=== PATIENT | female | born 1980 | race Caucasian/White ===

== ENCOUNTER 2022-01-12 12:33 | Outpatient (REF) | payer OTHER, SELFPAY ==
--- NOTE | ~2022-01-12 | MM_ITS ---
EXAMINATION: MM SCREENING DIGITAL BREAST TOMOSYNTHESIS, BILATERAL CLINICAL INFORMATION: Screening. Asymptomatic. Age 41. No prior breast imaging. No known family history breast cancer. The lifetime risk of breast cancer based on the Tyrer-Cuzick Model is 12%. COMPARISON: None (current study represents initial baseline exam). TECHNIQUE: Digital breast tomosynthesis is performed in both the craniocaudal and mediolateral oblique views along with computer-aided detection (CAD). Synthesized 2D images are generated from the tomosynthesis. FINDINGS: There are scattered areas of fibroglandular density (ACR BI-RADS breast composition Category b). There are no significant masses, abnormal calcifications, or other abnormalities. The axilla and skin contours are unremarkable. MM/MM tomosynthesis screening BI IMPRESSION: No mammographic evidence of malignancy. ASSESSMENT: BI-RADS 1: Negative RECOMMENDATION: Routine annual mammography screening. This patient's information was entered into a reminder system with a target due date for their next mammogram.
== END 2022-01-12 12:34 | disposition home or self-care (01) ==
LOC: HO.MAMMO 12:33
PROVIDERS: Visit Provider Student in an Organized Health Care Education/Training Program
DX: Z12.31 Encounter for screening mammogram for malignant neoplasm of breast (principal)
CPT/HCPCS: 77063; 77067

== ENCOUNTER 2023-06-03 12:14 | Outpatient (REF) | payer OTHER, SELFPAY | END 2023-06-03 12:15 | disposition home or self-care (01) | LOC: HO.MAMMO 12:14 | PROVIDERS: PCP Pediatrics; Visit Provider Pediatrics | DX: Z12.31 Encounter for screening mammogram for malignant neoplasm of breast (principal) | CPT/HCPCS: 77063; 77067 ==

== ENCOUNTER → 2023-06-03 12:30 | Outpatient (BNV) | payer OTHER, SELFPAY | PROVIDERS: PCP Pediatrics; Visit Provider Radiology Diagnostic Radiology | DX: Z12.31 Encounter for screening mammogram for malignant neoplasm of breast (principal) | CPT/HCPCS: 77063; 77067 ==

== ENCOUNTER 2024-06-08 12:10 | Outpatient (REF) | payer OTHER, SELFPAY ==
--- NOTE | ~2024-06-08 | MM_ITS ---
EXAMINATION: MM SCREENING DIGITAL BREAST TOMOSYNTHESIS, BILATERAL CLINICAL INFORMATION: Screening. Asymptomatic. COMPARISON: Mammography: Comparison is made with available priors TECHNIQUE: Digital breast mammography with tomosynthesis is performed in both the craniocaudal and mediolateral oblique views along with computer-aided detection (CAD). FINDINGS: There are scattered areas of fibroglandular density (ACR BI-RADS breast composition Category b). There are no significant masses, abnormal calcifications, or other abnormalities. MM/MM tomosynthesis screening BI IMPRESSION: No mammographic evidence of malignancy. ASSESSMENT: BI-RADS BI-RADS 1 - Negative RECOMMENDATION: Routine annual mammography screening. 1 year F/U This examination should not preclude the clinical evaluation of a suspicious palpable abnormality. This patient's information was entered into a reminder system with a target due date for their next mammogram. Electronically signed by: Alicia David DO 06/16/2024 03:20 PM MARA
== END 2024-06-08 12:11 | disposition home or self-care (01) ==
LOC: HO.MAMMO 12:10
PROVIDERS: Visit Provider Pediatrics
DX: Z12.31 Encounter for screening mammogram for malignant neoplasm of breast (principal)
CPT/HCPCS: 77063; 77067

== ENCOUNTER → 2024-06-08 12:30 | Outpatient (BNV) | payer OTHER, SELFPAY | PROVIDERS: Visit Provider Internal Medicine | DX: Z12.31 Encounter for screening mammogram for malignant neoplasm of breast (principal) | CPT/HCPCS: 77063; 77067 ==

== ENCOUNTER 2025-06-21 10:01 | Outpatient (REF) | payer OTHER, SELFPAY ==
--- NOTE | ~2025-06-21 | MM_ITS ---
EXAMINATION: MM SCREENING DIGITAL BREAST TOMOSYNTHESIS, BILATERAL CLINICAL INFORMATION: Screening. Asymptomatic. COMPARISON: Mammography: Comparison is made with available priors TECHNIQUE: Digital breast mammography with tomosynthesis is performed in both the craniocaudal and mediolateral oblique views along with computer-aided detection (CAD). FINDINGS: There are scattered areas of fibroglandular density. There are no significant masses, abnormal calcifications, or other abnormalities. MM/MM tomosynthesis screening BI IMPRESSION: No mammographic evidence of malignancy. ASSESSMENT: BI-RADS Category 1: Negative RECOMMENDATION: Routine annual mammography screening. 1 year F/U This examination should not preclude the clinical evaluation of a suspicious palpable abnormality. This patient's information was entered into a reminder system with a target due date for their next mammogram. Electronically signed by: Alicia David DO 06/21/2025 03:49 PM MARA
--- OUTSIDE RECORDS SUMMARY | 2025-06-21 12:11 | XMS_ITS | Continuity of Care Document ---
Author Organization [place] - [facility] Located within [facility] Address [address] [address] Care Team Providers Care Production Bow Maker Name Role Phone ZOE PITT Primary Care Provider Assessment Encounter Date Assessment Date Assessment LastModified by Organization Details LastModified Time 05/06/2025 05/06/2025 CL & CK aid working fine. Told to contact office to schedule f/u appt with audiology after the [email or web address] Not available 05/06/2025 16:30:50 Plan of Treatment Reminders Order Date Submit Date Provider Last Modified By Organization Details Last Modified Time Details Appointments Establish ed 10 2025 09:30A M SRIDEVI HERNANDEZ MD Not available Not available Not available Lab None recorded. Referral None recorded. Procedures None recorded. Surgeries None recorded. Imaging None recorded. Medication Orders None recorded. Patient TargetsNo targets recorded. Patient InstructionsNo instructions recorded. Reason for Referral None Reported. Problems Name Problem SNOMED Code Status Onset Date Resolution Date Notes Provider Name and Address Organization Details Recorded Time Acute serous otitis media of right ear [id number] 78981 Completed 201602/21/2024 Acute serous otitis media, right ear; Note: Date Diagnose d: 7 12:48 PM (H65.01) Not Available [facility] 4 02:56:36 Pain of right temporom andibula r joint 42192792257 348720 Active 2016 Arthralg ia of right temporom andibula r joint; Note: Date Diagnose d: 7 12:46 PM (M26.621 ) Not Available [facility] 4 02:56:35 Conducti ve hearing loss 63751623 Active 2016 Conducti ve hearing loss, unilater al, left ear, with unrestri cted hearing on the contrala teral side; Note: Changed from H90.0 to H90.12 (03/11/20 23 11:57 AM) , Date Diagnose d: 7 9:13 AM (H90.0) Not Available [facility] 4 02:56:38 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 [id number] 73541 Completed 201602/21/2024 Choleste atoma of attic, right ear; Note: Date Diagnose d: 7 8:59 AM (H71.01) Not Available [facility] 4 02:56:37 Mixed conducti ve and sensorin eural hearing loss, bilatera l 189691515 Active 2019 Mixed conducti ve and sensorin eural hearing loss, bilatera l; Note: Date Diagnose d: 0 11:11 AM (H90.6) Not Available [facility] 4 02:56:37 Otorrhea of left ear 94532971768 45654 Completed 202012/03/2023 Otorrhea , left ear; Note: Date Diagnose d: 1 1:48 PM (H92.12) Note: Date Diagnose d: 1 1:48 PM (H92.12) SRIDEVI HERNANDEZ MD [address] [place] [address], [facility] [place], [address] , [facility] - [facility] 4 20:20:07 Partial loss of ear ossicles 55421351 Active 2020 Partial loss of ear ossicles , right ear; Note: Date Diagnose d: 7 10:24 AM (H74.321 ) ; Start Date : 12/13/19 17 Parti al loss of ear ossicles , left ear; Note: Date Diagnose d: 1 9:19 AM (H74.322 ) Partia l loss of ear ossicles , bilatera l; Note: Date Diagnose d: 09/20/2020 2:54 PM (H74.323 ) ; Start Date : 09/21/19 21 Not Available [facility] 4 02:56:36 Marginal perforat ion of tympanic membrane 95776337 Active 2022 Other marginal perforat ions of tympanic membrane , left ear; Note: Date Diagnose d: 3 11:57 AM (H72.2X2 ) Other marginal perforat ions of tympanic membrane , left ear; Note: Date Diagnose d: 7 12:38 PM (H72.2X2 ) ; Start Date : 08/06/19 17 Not Available [facility] 4 02:56:37 Conducti ve hearing loss 52328453 Active 2023 SRIDEVI HERNANDEZ MD [address] [facility] [address], [place], [address] , [place] - [facility] 4 20:21:57 Marginal perforat ion of tympanic membrane 26534813 Active 2023 SRIDEVI HERNANDEZ MD [address] [facility] [address], [place], [address] , [place] [facility] 4 20:22:04 Disorder of left Eustachi an tube 02512711870 89752 Active 2023 SRIDEVI HERNANDEZ MD [address] [facility],[place] [address], [place], [address] , [place] [facility] 4 20:22:21 Left conducti ve hearing loss 37494574688 07 Active 2023 KRISTIN VALLE, PHIL [address] [facility],[place] [address], [place], [address] , [place] [facility] 4 16:04:07 Acute myringit is of left ear 45396437958 23130 Active 2024 SRIDEVI HERNANDEZ MD [address] [facility],[place] [address], [place], [address] , [place] [facility] 10:30:26 Conducti ve hearing loss of left ear with normal hearing on right side 9130846772 Active 2024 KRISTIN VALLE, [facility] [address] [address], [place], [address] , [facility] 16:28:22 Problem Notes None recorded. Procedures Surgical History Date Name Laterality Status Provider Name and Address Organization Details Recorded Time tonsillectomy and adenoidectomy completed Zuleyka Godinez [facility] 03/02/2024 09:18:19 extraction of wisdom tooth completed Zuleyka Godinez [facility] 03/02/2024 09:18:30 section completed Zuleyka Godinez [facility] 03/02/2024 09:18:36 Imaging Results None recorded. Procedure Notes None recorded. Medical Equipment None Reported. Allergies No known drug allergies Medications Name Sig Start Date Stop Date Status Note LastModified by Organization Details LastModified Time Claritin 10 mg tablet 1 tablet by mouth 03/29 completed Medicati on ID: [id number] D uration Value: 90 Brand Name: Claritin Send Method: E-Prescr ibed Sub s Allowed: subs OK Medic ationGen ericName : Claritin Not Available Not Available Not Available Ciloxan 0.3 % eye drops 02/06 completed Medicati on ID: [id number] P rescribe d By Name: VARUN Long nd Name: Ciloxan Send Method: E-Prescr ibed Sub s Allowed: subs OK Speci al Instruct ion: Instill 4 drops twice a day into right ear for 14 days Med icationG enericNa me: Ciloxan Not Available Not Available Not Available acetamino phen 500 mg tablet TAKE 2 TABLETS BY MOUTH THREE TIMES DAILY NEEDED FOR PAIN 03/29 completed Not Available Not Available Not Available ofloxacin 0.3 % ear drops 4 drop 03/02 completed Medicati on ID: [id number] D uration Value: 7 Prescri bed By Name: Juni Palomino nd Name: ofloxaci n Send Method: E-Prescr ibed Sub s Allowed: subs OK Speci al Instruct ion: x 7 days Med icationG enericNa me: ofloxaci n Not Available Not Available Not Available levofloxa letty 750 mg tablet 12/21 completed Medicati on ID: [id number] D uration Value: 14 Reason: () Brand Name: levoflox acin Sen d Method: E-Prescr ibed Sub s Allowed: subs OK Medic ationGen ericName : levoflox acin Not Available Not Available Not Available Pitman 5 mg-325 mg tablet 1-2 tablet by mouth 03/02 completed Medicati on ID: [id number] D uration Value: 7 Prescri bed By Name: Juni Palomino nd Name: Devaughn Se nd Method: E-Prescr ibed Sub s Allowed: subs OK Medic ationGen ericName : Pitman Not Available Not Available Not Available cefdinir 300 mg capsule TAKE 1 CAPSULE BY MOUTH EVERY 12 HOURS FOR 7 DAYS TAKE FOR TREATMEN T OF EAR INFECTIO N 03/02 completed Not Available Not Available Not Available amoxicill in 875 mg-potass ium clavulana te 125 mg tablet TAKE 1 TABLET BY MOUTH EVERY 12 HOURS FOR 14 DAYS 03/02 completed Not Available Not Available Not Available tobramyci n 0.3 %-dexamet hasone 0.1 % eye drops,[employer] pension SHAKE LIQUID AND INSTILL 4 DROPS TO LEFT EAR TWICE DAILY FOR 7 DAYS active Not Available Not Available No t Available oxycodone 5 mg tablet TAKE 1 TABLET BY MOUTH EVERY 6 HOURS NEEDED FOR PAIN. MAY FILL IN AN AMOUNT NOT TO EXCEED THE RECOMMEN DED FULL QUANTITY INDICATE D 03/29 completed Not Available Not Available Not Available ciproflox acin 0.3 %-dexamet hasone 0.1 % ear drops,[employer] pension SHAKE LIQUID AND INSTILL 4 DROPS TO LEFT EAR TWICE DAILY FOR 7 DAYS 03/02 completed Not Available Not Available Not Available Vitals None Recorded Social History None recorded. Functional Status None recorded. Mental Status None recorded. Family History Nothing Reported. Medical History No medical history recorded. Gynecological HistoryNo gynecological history recorded. Obstetrics History GPAL:G 0 P 0 0 0 0 Past Encounters Encounter ID Performer Location Encounter Start Date Encounter Closed Date Diagnosis/Indication Diagnosis SNOMED-CT Code Diagnosis ICD10 Code Diagnosis IMO Codes Diagnosis Note [id number] [facility] [place] [address] [facility], [place] [address] [place] [address] 05/06/2025 15:39:05 05/07/2025 11:57:37 Conductive hearing loss of left ear with normal hearing on right side [id number] H90.12 [id number] Health Concerns Section Related Observation LastModified by Organization Detai ls LastModified Time None Recorded Concern Status LastModified by Organization Details LastModified Time None Recorded Payers Encounter Date Sequence Insurance Name Policy Number Policy Grigsby Covered Member ID Grigsby Member ID Guarantor Name 05/06/2025 1 [employer] [id number] Eliana Akbar [id number] Eliana Akbar Notes Date Note Type Note Provider Name and Address Organization Details Recorded Time 05/06/2025 text/html Patient has no hearing aid benefit. Currently wearing Oticon Intent 1 miniRITE R in chroma beige color in the left ear. dispensed 10/17/2023Excellen t fit to real ear. NAL2 target Set to # 3 adaptation for best clarity. CL & CK - aid working fine - annual appt madeCL&CK aid working fine. Annual appt made PHIL ADAM 100 [facility] [address], [address], [facility] - [facility] 05/06/2025 16:31:38 OBGyn Episode No OBEpisode recorded.
--- OUTSIDE RECORDS SUMMARY | 2025-06-21 12:11 | XMS_ITS | Encounter Summary ---
Author Organization [facility] Address [address] [place] [address] Phone Care Team Providers Care Renderer Name Role Phone Pippa Miramontes MD Primary Care Provid er Owen Betancourt MD Unavailable [phone] Encounter Details Date Type Department Care Team ([facility] Contact Info) Description 02/24/2024 Procedure Pass [facility] [address] [place] [address] Social History Tobacco Use Types Packs/Day Years Used Date Smoking Tobacco: Never Passive Smoke Exposure: Never Smokeless Tobacco: Never Alcohol Use Standard Drinks/Week Comments Yes 0 (1 standard drink = 0.6 oz pur e alcohol) on ocassion, socially Education Answer Date Recorded Are you interested in more education? Not on angelia e 11/17/2022 Are you concerned about learning? Not on file 11/17/2022 No 11/17/2022 No 11/17/2022 Digital Access Answer Date Recorded No 12/18/2022 No 12/18/2022 Reliable internet access at home? Not on file 12/18/2022 Device with a working camera? Not on file Comments Unknown Sex and Gender Information Value Date Recorded Sex Assigned at Not on file Legal Sex Female 10:38 AM EST Gender Identity Not on file Sexual Orientation Not on file documented as of this encounter Plan of Treatment Upcoming Encounters Date Type Department Care Team ([facility] Contact Info) Description 02/02/2026 8:20 AM EDT Office Visit [facility] [address] [place] [address] Catherine Valencia MD [address] [place] [phone] [email or web address] documented as of this encounter Visit Diagnoses Not on filedocumented in this encounter Care Teams Renderer Relationship Specialty Start Date End Date Pippa Miramontes MD [address] [address] PCP - General Internal Medicine 12/09/23 Owen Betancourt MD [address] [address] [email or web address] Otolaryngology 12/09/23 documented as of this encounter Additional Source Comments The information contained in this document represents components of the legal health record. It is not the complete legal health record.[facility]
--- OUTSIDE RECORDS SUMMARY | 2025-06-21 12:11 | XMS_ITS | Clinical Summary ---
Author Organization [facility] Address [address] [place] [address] Phone Care Team Providers Care Cosmetic Consultant Name Role Phone Pippa Miramontes MD Primary Care Provid er Owen Betancourt MD Unavailable [phone] Allergies No known active allergies Medications Medication-Free Text Allergy relief antihistamin e- 25 mg tablet- 1 tablet every evening. Active Active Problems Problem Noted Date Diagnosed Date Malignant neoplasm of thyroid gland 01/27/2025 Assessment & Plan (01/27/2025 1:44 PM EDT): S/p left hemithyroidectomy in May for 7 mm papillary CA, classic type, margins negative, no ETE/LVI/BVI, 6 lymph nodes removed, all negative. 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 She is at very low risk for having residual/recurrent dz. TG flagged high but it was wnl given only had hemithyroidectomy/no BERRY. Her TSH had initially been high normal, but has come back down to pre-surgical level so do not think needs LT4 rx to lower TSH further given low risk. Will monitor labs yearly for now. Polycystic ovarian syndrome 01/22/2024 Chronic ear infection 01/22/2024 Spontaneous pneumothorax 01/22/2024 Multinodular goiter 01/22/2024 Assessment & Plan (01/22/2024 9:11 AM EDT): 43 y.o. woman with multinodular goiter, found on exam by furniture refinisher. Ultrasound last fall showed a stable 7 mm left lower pole nodule and a new 0.9 cm TIRADS 5 nodule in the upper left. She is clinically euthyroid. Will check TFTs. Will obtain/review actual thyroid u/s images & plan on repeating ultrasound in the fall as per recommendation of radiology unless I feel it should be done sooner based on ultrasound appearance. Reviewed ddx & evaluation of nodular thyroid disease. Will obtain previous records from [facility] as well. She should call if does not hear from me with results within 1-2 weeks. Family History Medical History Relation Comments High cholesterol Father Hypertension Father Transient ischemic attack Maternal Grandmother Heart murmur Mother Osteoporosis Mother Diabetes mellitus Paternal Grandfather Diabetes mellitus Paternal Grandmother Diabetes mellitus Paternal Uncle Thyroid disease Neg Hx Relation Status Comments Father Maternal Grandmother Mother Paternal Grandfather Paternal Grandmother Paternal Uncle Social History Tobacco Use Types Packs/Day Years Used Date Smoking Tobacco: Never Passive Smoke Exposure: Never Smokeless Tobacco: Never Tobacco Cessation:Counseling Given: No Alcohol Use Standard Drinks/Week Comments Yes 0 [...] on file Sexual Orientation Not on file Last Filed Vital Signs Vital Sign Reading Time Taken Comments Blood Pressure 124/76 01/27/2025 8:06 AM EDT Pulse 90 01/27/2025 8:06 AM EDT Temperature 36.6 C (97.8 F) 01/22/2024 8:24 AM EDT Respiratory Rate - - Oxygen Saturation 99% 01/27/2025 8:06 AM EDT Inhaled Oxygen Concentration - - Weight 125.1 kg (275 lb 12.8 oz) 01/27/2025 8:06 AM EDT Height 167.6 cm (5' 6 ) 01/27/2025 8:06 AM EDT Body Mass Index 44.52 01/27/2025 8:06 AM EDT Plan of Treatment Upcoming Encounters Date Type Department Care Team (Late st Contact Info) Description 02/02/2026 8:20 AM EDT Office Visit [facility] [address] [place] [address] [place] [address] Catherine Valencia MD [address] [place] [phone] [email or web address] Health Maintenance Due Date Last Done Comments DEPRESSION SCREENING 1993 HEPATITIS C SCREENING 1999 HIV ONE-TIME SCREENING (18-65 YEARS) 1999 PNEUMOCOCCAL VACCINES (0-49 years) (1 of 2 - PCV) 2000 PAP SMEAR 2002 SCREENING FOR DIABETES 2016 MAMMOGRAM 2021 Adult Td,Tdap Booster 12/26/2023 12/25/2013 , 04/30/2011, 03/05/1995 INFLUENZA VACCINE (#1) 2025 04/07/2021 COVID-19 VACCINE ( season) 2025 06/01/2021, 10/07/2020, 09/16/2020, Additional history exists HIB VACCINES Completed 01/19/1985 MENINGOCOCCAL VACCINES (ACWY) Aged Out 04/27/1999 No longer eligible based on patient's age to complete this topic SMOKING STATUS SCREENING (Once After 26 Yrs) Completed 01/27/2025 HEPATITIS A VACCINES Aged Out No long er eligible based on patient's age to complete this topic MENINGOCOCCAL VACCINES (B) Aged Out N o longer eligible based on patient's age to complete this topic Medical Devices Not on file Insurance RAY PPO CIGNA PPO CIGNA PPO CIGNA PPO CIGNA PPO CIGNA PPO Member Subscriber Plan / Payer (Ef fective 2021-Present) Name:Raffy Manisha Relation to Subscriber:Spouse Name:MANISHA AKBAR Date of :1979 Address: [address] [place] [id number] Payer ID:[id number] (NA) Type:PPO Address: [facility] [id number] [place] [id number] Care Teams Cosmetic Consultant Relationship Specialty Start Date End Date Pippa Miramontes MD [address] [address] PCP - General Internal Medicine 12/09/23 Owen Betancourt MD [address] [address] [email or web address] Otolaryngology 12/09/23 Additional Source Comments The information contained in this document represents components of the legal health record. It is not the complete legal health record.[facility]
--- OUTSIDE RECORDS SUMMARY | 2025-06-21 12:11 | XMS_ITS | Data Portability ---
Author Organization [place] - [facility], Allergy Address [address] [address] Care Team Providers Care Dock Operator Name Role Phone ZOE PITT Primary Care Provider [phone] Assessment Encounter Date Assessment Date Assessment LastModified by Organization Details LastModified Time 03/02/2024 03/02/2024 The previously noted retraction of the left reconstructed tympanic membrane appears to remain resolved. I was able to appreciate a pinpoint perforation of the anterior inferior quadrant which is difficult to see due to the curvature of the canal. We discussed how this small perforation is therapeutic rather than pathologic in light of the underlying eustachian tube function, so I recommend continued observation. The right reconstructed tympanic membrane and ossicular chain appears stable overall, no signs of recurrent cholesteatoma or progressive retraction. At this point, no further surgery is planned for this year, but would recommend yearly follow-up to monitor for retraction in light of her significant underlying eustachian tube dysfunction. Patient will continue to follow-up with Justina in audiology for hearing aid maintenance. [email or web address] Not available 03/02/2024 09:28:55 04/23/2024 04/23/2024 CL & CK - aid working fine - annual appt made [email or web address] Not available 04/23/2024 16:10:50 10/15/2024 10/15/2024 CL&CK aid working fine. Annual appt made [email or web address] Not available 10/15/2024 16:31:39 03/29/2025 03/29/2025 The previously noted retraction of the left reconstructed tympanic membrane appears to remain resolved. I was unable to appreciate the previously noted pinpoint perforation of the anterior inferior quadrant which is difficult to see due to the curvature of the canal. We discussed how this small perforation is therapeutic rather than pathologic in light of the underlying eustachian tube function, so I recommend continued observation. There is mild superficial myringitis of the left tympanic membrane for which I recommended 7 days of topical TobraDex drops. Prescription sent to the pharmacy. The right reconstructed tympanic membrane and ossicular chain appears stable overall, no signs of recurrent cholesteatoma or progressive retraction. At this point, no further surgery is planned for this ear, but would recommend yearly follow-up to monitor for retraction in light of her significant underlying eustachian tube dysfunction. Patient will continue to follow-up with Justina in audiology for hearing aid maintenance. [email or web address] Not available 03/29/2025 10:33:27 05/06/2025 05/06/2025 CL & CK aid working fine. Told to contact office to schedule f/u appt with audiology after the holidays [email or web address] Not available 05/06/2025 16:30:50 Plan of Treatment Reminders Order Date Submit Date Provider Last Modified By Organization Details Last Modified Time Details Appointments Establish ed 10 2025 09:30A M SRIDEVI HERNANDEZ MD Not available Not available Not available Lab None recorded. Referral None recorded. Procedures None recorded. Surgeries None recorded. Imaging None recorded. Medication Orders tobramyci n 0.3 %-dexamet hasone 0.1 % [id number], [address] [place], [place], [phone], 03/29/2025 10:31:47 Patient TargetsNo targets recorded. Patient InstructionsNo instructions recorded. Reason for Referral None Reported. Results Created Date Observation Date Name Description Value Unit Range Abnormal Flag Note LastModifiedBy Organization Detail LastModifiedTime 03/11/20 24 08/10/2019 imagi ng/di agnos tic resul t No observ ation record ed. [email or web address] Not Available 03:02:00 03/11/20 24 09/20/2020 imagi ng/di agnos tic resul t No observ ation record ed. [email or web address] Not Available 03:02:12 03/11/20 24 02/06/2021 imagi ng/di agnos tic resul t No observ ation record ed. [email or web address] Not Available 03:02:49 03/11/20 24 03/11/2023 imagi ng/di agnos tic resul t No observ ation record ed. [email or web address] Not Available 03:03:03 03/11/20 24 03/11/2023 imagi ng/di agnos tic resul t No observ ation record ed. [email or web address] Not Available 03:03:08 03/11/20 24 03/11/2023 imagi ng/di agnos tic resul t No observ ation record ed. [email or web address] Not Available 03:03:47 03/11/20 24 08/10/2019 audio gram No observ ation record ed. [email or web address] Not Available 03:03:57 03/11/20 24 04/08/2023 audio gram No observ ation record ed. [email or web address] Not Available 03:04:12 03/11/20 24 09/12/2023 audio gram No observ ation record ed. [email or web address] Not Available 03:04:34 03/11/20 24 10/17/2023 audio gram No observ ation record ed. [email or web address] Not Available 03:04:49 03/11/20 24 10/31/2023 audio gram No observ ation record ed. [email or web address] Not Available 03:04:55 Result Notes None recorded. Problems Name Problem SNOMED Code Status Onset Date Resolution Date Notes Provider Name and Address Organization Details Recorded Time Acute serous otitis media of right ear [id number] 04098 Completed 201602/21/2024 Acute serous otitis media, right ear; Note: Date Diagnose d: 7 12:48 PM (H65.01) Not Available [facility] 4 02:56:36 Pain of right temporom andibula r joint 65807309770 025061 Active 2016 Arthralg ia of right temporom andibula r joint; Note: Date Diagnose d: 7 12:46 PM (M26.621 ) Not Available [facility] 4 02:56:35 Conducti ve hearing loss 67025797 Active 2016 Conducti ve hearing loss, unilater al, left ear, with unrestri cted hearing on the contrala teral side; Note: Changed from H90.0 to H90.12 (03/11/20 11:57 AM) , Date Diagnose d: 7 9:13 AM (H90.0) Not Available [facility] 4 02:56:38 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 [id number] 38852 Completed 201602/21/2024 Choleste atoma of attic, right ear; Note: Date Diagnose d: 7 8:59 AM (H71.01) Not Available [facility] 4 02:56:37 Mixed conducti ve and sensorin eural hearing loss, bilatera l 852105790 Active 2019 Mixed conducti ve and sensorin eural hearing loss, bilatera l; Note: Date Diagnose d: 0 11:11 AM (H90.6) Not Available [facility] 4 02:56:37 Otorrhea of left ear 18446329653 67247 Completed 202012/03/2023 Otorrhea , left ear; Note: Date Diagnose d: 1 1:48 PM (H92.12) Note: Date Diagnose d: 1 1:48 PM (H92.12) SRIDEVI HERNANDEZ MD [address] [place] [address], [facility] [place], [address] , [place] [facility] 4 20:20:07 Partial loss of ear ossicles 50445856 Active 2020 Partial loss of ear ossicles [...] Start Date : 09/21/19 21 Not Available [facility] 4 02:56:36 Marginal perforat ion of tympanic membrane 98929869 Active 2022 Other marginal perforat ions of tympanic membrane , left ear; Note: Date Diagnose d: 3 11:57 AM (H72.2X2 ) Other marginal perforat ions of tympanic membrane , left ear; Note: Date Diagnose d: 7 12:38 PM (H72.2X2 ) ; Start Date : 08/06/19 17 Not Available [facility] 4 02:56:37 Conducti ve hearing loss 76704879 Active 2023 SRIDEVI HERNANDEZ MD [address] [place] [address],[place] [address], [place], [address] , [place] - [facility] 4 20:21:57 Marginal perforat ion of tympanic membrane 62196294 Active 2023 SRIDEVI HERNANDEZ MD [address] [place] [address],[place] [address], [place], [address] , [place] - [facility] 4 20:22:04 Disorder of left Eustachi an tube 42991763359 41820 Active 2023 SRIDEVI HERNANDEZ MD [address] [place] [address],[place] [address], [place], [address] , [place] - [facility] 4 20:22:21 Left conducti ve hearing loss 08869295418 07 Active 2023 JUSTINA VALLE, PHIL [address] [facility],[place] [address], [place], [address] , [place] - [facility] 4 16:04:07 Acute myringit is of left ear 45031158771 49332 Active 2024 SRIDEVI HERNANDEZ MD 100 [facility],[place] [address], [facility] [place], [address] , [place] - [facility] 5 10:30:26 Conducti ve hearing loss of left ear with normal hearing on right side 2957921534 Active 2024 PHIL ADAM 100 [facility] 100, [facility] [place], [address] , [place] - [facility] 5 16:28:22 Problem Notes None recorded. Procedures Surgical History Date Name Laterality Status Provider Name and Address Organization Details Recorded Time tonsillectomy and adenoidectomy completed Zuleyka Godinez [facility] 03/02/2024 09:18:19 extraction of wisdom tooth completed Zuleyka Godinez [facility] 03/02/2024 09:18:30 section completed Zuleyka Godienz [facility] 03/02/2024 09:18:36 Imaging Results None recorded. Procedure Notes None recorded. Medical Equipment None Reported. Allergies No known drug allergies Medications Name Sig Start Date Stop Date Status Note LastModified by Organization Details LastModified Time Claritin 10 mg tablet 1 tablet by mouth 03/29 completed Medicati on ID: [id number] D uration Value: 90 Brand Name: Claritin Send Method: E-Prescr ibed Sub s Allowed: subs OK Medic ationGen ericName : Claritin Not Available Not Available Not Available Ciloxan 0.3 % eye drops 02/06 completed Medicati on ID: [id number] P rescribe d By Name: VARUN Long [...] 4 drop 03/02 completed Medicati on ID: [id number] D uration Value: 7 Prescri bed By Name: Juni Palomino nd Name: ofloxaci n Send Method: E-Prescr ibed Sub s Allowed: subs OK Speci al Instruct ion: x 7 days Med icationG enericNa me: ofloxaci n Not Available Not Available Not Available levofloxa letty 750 mg tablet 12/21 completed Medicati on ID: [id number] D uration Value: 14 Reason: () Brand Name: levoflox acin Sen d Method: E-Prescr ibed Sub s Allowed: subs OK Medic ationGen ericName : levoflox acin Not Available Not Available Not Available Newbern 5 mg-325 mg tablet 1-2 tablet by mouth 03/02 completed Medicati on ID: [id number] D uration Value: 7 Prescri bed By Name: Juni Palomino nd Name: Newbern Se nd Method: E-Prescr ibed Sub s Allowed: subs OK Medic ationGen ericName : Newbern Not Available Not Available Not Available [email or web address] [...] ICD10 Code Diagnosis IMO Codes Diagnosis Note [id number] SRIDEVI HERNANDEZ MD [facility] [address] [address] 03/02/2024 09:06:28 03/02/2024 09:33:26 Marginal perforation of tympanic membrane 56625502 H72.2X2 Conductive hearing loss 97296145 H90.12 Disorder o f left Eustachian tube 3053850957 998470 H69.92 Partial lo ss of ear ossicles 62695935 H74.321 H74.322 H74.323 [id number] [facility]IL ADAM [facility] [place] [address] [place] [address] 04/23/2024 15:39:43 04/24/2024 07:23:26 Left conductive hearing loss 4407312343 107 H90.12 [id number] PHIL ADAM [facility] [place] [address] [place] [address] 10/15/2024 15:37:52 10/19/2024 16:23:21 Left conductive hearing loss 9155240269 107 H90.12 [id number] SRIDEVI HERNANDEZ MD [facility] [address] [address] 03/29/2025 09:38:31 03/29/2025 10:34:04 Conductive hearing loss 54013504 H90.12 Disorder o f left Eustachian tube 2740278030 013596 H69.92 Partial lo ss of ear ossicles 25876023 H74.321 H74.322 H74.323 Acute myri ngitis of left ear 0243442698 995064 H73.002 [id number] PHIL ADAM [facility] [place] 100 [facility],[place] [address] [place] [address] 05/06/2025 15:39:05 05/07/2025 11:57:37 Conductive hearing loss of left ear with normal hearing on right side 0910813793 H90.12 [id number] Health Concerns Section Related Observation LastModified by Organization Detai ls LastModified Time None Recorded Concern Status LastModified by Organization Details LastModified Time None Recorded Advance Directives Directive None Recorded Payers Insurance Date Sequence Insurance Name Policy Number Policy Grigsby Covered Member ID Grigsby Member ID Guarantor Name 05/03/2025 1 [employer] [id number] Elianareji Akbar [id number] Eliana Jonnadeem Notes Date Note Type Note Provider Name and Address Organization Details Recorded Time 03/02/2024 text/html Patient 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 Status post left-sided tympanoplasty with concurrent Otomimix reconstruction of the IS joint in October 2020. Also has history of two stage surgery for right sided cholesteatoma back in . At a visit back in January 2021, there was some concerns about progress of retraction of the newly reconstructed left tympanic membrane which resolved spontaneously in the presence of a new re-perforation of the drum noted by tympanometry in February 2023. At that point I recommended continued observation with consideration of amplification to treat the underlying residual conductive hearing loss. Patient currently working with Justina in audiology for her hearing aids. Patient reports her ears have been feeling fine, with no blockage, pain, or discharge. SRIDEVI HERNANDEZ MD 100 [facility],[address], [address], [facility] - [facility] 03/02/2024 09:29:42 04/23/2024 text/html Patient has no hearing aid benefit. Currently wearing Oticon Intent 1 miniRITE R in chroma beige color in the left ear. dispensed 10/17/2023 PHIL ADAM 100 [facility],[address], [address], [facility] - [facility] 04/23/2024 16:11:33 10/15/2024 text/html Patient has no hearing aid benefit. Currently wearing Oticon Intent 1 miniRITE R in chroma beige color in the left ear. dispensed 10/17/2023 Excellent fit to real ear. NAL2 target Set to # 3 adaptation for best clarity. 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 Status post left-sided tympanoplasty with concurrent Otomimix reconstruction of the IS joint in October 2020. Also has history of two stage surgery for right sided cholesteatoma back in . At a visit back in January 2021, there was some concerns about progress of retraction of the newly reconstructed left tympanic membrane which resolved spontaneously in the presence of a new re-perforation of the drum noted by tympanometry in February 2023. At that point I recommended continued observation with consideration of amplification to treat the underlying residual conductive hearing loss. Patient currently working with Justina in audiology for her hearing aids. Patient reports her ears have been feeling fine, with no blockage, pain, or discharge. SRIDEVI HERNANDEZ MD 100 [facility],[address], [address], [facility] - [facility] 03/29/2025 10:33:48 05/06/2025 text/html Patient has no hearing aid benefit. Currently wearing Oticon Intent 1 miniRITE R in chroma beige color in the left ear. dispensed 10/17/2023Excellent fit to real ear. NAL2 target Set to # 3 adaptation for best clarity. CL & CK - aid working fine - annual appt madeCL&CK aid working fine. Annual appt made JUSTINA VALLE, AUD 100 [facility],[address], [address], [facility] 05/06/2025 16:31:38 OBGyn Episode No OBEpisode recorded.
--- OUTSIDE RECORDS SUMMARY | 2025-06-21 12:11 | XMS_ITS | Continuity of Care Document ---
Author Organization [place] - [facility], [facility] Address [address] [place] [address] Care Team Providers Care Patient Service Coordinator Name Role Phone ZOE PITT Primary Care Provider Assessment Encounter Date Assessment Date Assessment LastModified by Organization Details LastModified Time 03/29/2025 03/29/2025 The previously noted retraction of [...] Justina in audiology for hearing aid maintenance. [email or web address] Not available 03/29/2025 10:33:27 Plan of Treatment Reminders Order Date Submit Date Provider Last Modified By Organization Details Last Modified Time Details Appointments Establish ed 10 2025 09:30A M SRIDEVI HERNANDEZ MD Not available Not available Not available Lab None recorded. Referral None recorded. Procedures None recorded. Surgeries None recorded. Imaging None recorded. Medication Orders tobramyci n 0.3 %-dexamet hasone 0.1 % eye drops,soraya pension 2024 025 [id number], [address], [place], [id number], 03/29/2025 10:31:47 Patient TargetsNo targets recorded. Patient InstructionsNo instructions recorded. Reason for Referral None Reported. Problems Name Problem SNOMED Code Status Onset Date Resolution Date Notes Provider Name and Address Organization Details Recorded Time Acute serous otitis media of right ear [id number] Completed 201602/21/2024 Acute serous otitis media, right ear; Note: Date Diagnose d: 7 12:48 PM (H65.01) Not Available [facility] 4 02:56:36 Pain of right temporom andibula r joint [id number] 789667 Active 2016 Arthralg ia of right temporom andibula r joint; Note: Date Diagnose d: 7 12:46 PM (M26.621 ) Not Available [facility] 4 02:56:35 Conducti ve hearing loss 63779401 Active 2016 Conducti ve hearing loss, unilater al, left ear, with unrestri cted hearing on the contrala teral side; Note: Changed from H90.0 to H90.12 (03/11/20 23 11:57 AM) , Date Diagnose d: 7 9:13 AM (H90.0) Not Available [facility] 4 02:56:38 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 [id number] 46928 Completed 201602/21/2024 Choleste atoma of attic, right ear; Note: Date Diagnose d: 7 8:59 AM (H71.01) Not Available [facility] 4 02:56:37 Mixed conducti ve and sensorin eural hearing loss, bilatera l 025609243 Active 2019 Mixed conducti ve and sensorin eural hearing loss, bilatera l; Note: Date Diagnose d: 0 11:11 AM (H90.6) Not Available [facility] 4 02:56:37 Otorrhea of left ear 92852529202 29505 Completed 202012/03/2023 Otorrhea , left ear; Note: Date Diagnose d: 1 1:48 PM (H92.12) Note: Date Diagnose d: 1 1:48 PM (H92.12) SRIDEVI HERNANDEZ MD [address] [facility],[place] [address], [place], [address] , [facility] - [facility] 4 20:20:07 Partial loss of ear ossicles 42278765 Active 2020 Partial loss of ear ossicles [...] Start Date : 09/21/19 21 Not Available [facility] 4 02:56:36 Marginal perforat ion of tympanic membrane 47124612 Active 2022 Other marginal perforat ions of tympanic membrane , left ear; Note: Date Diagnose d: 3 11:57 AM (H72.2X2 ) Other marginal perforat ions of tympanic membrane , left ear; Note: Date Diagnose d: 7 12:38 PM (H72.2X2 ) ; Start Date : 08/06/19 17 Not Available [facility] 4 02:56:37 Conducti ve hearing loss 52150414 Active 2023 SRIDEVI HERNANDEZ MD [address] [facility] [address], [place], [address] , [facility] - [facility] 4 20:21:57 Marginal perforat ion of tympanic membrane 72858146 Active 2023 SRIDEVI HERNANDEZ MD [address] [facility], [place], [place], [address] , [place] - [facility] [place] 4 20:22:04 Disorder of left Eustachi an tube 52079918141 18103 Active 2023 SRIDEVI HERNANDEZ MD [address] [facility], [place], [address] , [place] - [facility] [place] 4 20:22:21 Left conducti ve hearing loss 26646303275 07 Active 2023 PHIL ADAM [address] [facility], [place], [place], [address] , [place] - [facility] 4 16:04:07 Acute myringit is of left ear 25376845555 13064 Active 2024 SRIDEVI HERNANDEZ MD [address] [facility],[place] [address], [place], [place], [address] , [place] - [facility] 5 10:30:26 Conducti ve hearing loss of left ear with normal hearing on right side 3875516528 Active 2024 PHIL ADAM [address] [facility] [address], [place], [address] , [place] - [facility] [place] 5 16:28:22 Problem Notes None recorded. Procedures Surgical History Date Name Laterality Status Provider Name and Address Organization Details Recorded Time tonsillectomy and adenoidectomy completed Zuleyka Godinez [place] [facility] 03/02/2024 09:18:19 extraction of wisdom tooth completed Zuleyka Godinez [place] [facility] 03/02/2024 09:18:30 section completed Zuleyka Godinez [facility] 03/02/2024 09:18:36 Imaging Results None recorded. Procedure Notes None recorded. Medical Equipment None Reported. Allergies No known drug allergies Medications Name Sig Start Date Stop Date Status Note LastModified by Organization Details LastModified Time Claritin 10 mg tablet 1 tablet by mouth 03/29 completed Medicati on ID: [id number] D uration Value: 90 Brand Name: Claritin Send Method: E-Prescr ibed Sub s Allowed: subs OK Medic ationGen ericName : Claritin Not Available Not Available Not Available Ciloxan 0.3 % eye drops 02/06 completed Medicati on ID: [id number] P rescribe d By Name: VARUN Long [...] 4 drop 03/02 completed Medicati on ID: [id number] D uration Value: 7 Prescri bed By Name: Juni Palomino nd Name: ofloxaci n Send Method: E-Prescr ibed Sub s Allowed: subs OK Speci al Instruct ion: x 7 days Med icationG enericNa me: ofloxaci n Not Available Not Available Not Available levofloxa letty 750 mg tablet 12/21 completed Medicati on ID: [id number] D uration Value: 14 Reason: () Brand Name: levoflox acin Sen d Method: E-Prescr ibed Sub s Allowed: subs OK Medic ationGen ericName : levoflox acin Not Available Not Available Not Available [place] 5 mg-325 mg tablet 1-2 tablet by mouth 03/02 completed Medicati on ID: [id number] D uration Value: 7 Prescri bed By Name: Juni Palomino nd Name: [place] Se nd Method: E-Prescr ibed Sub s Allowed: subs OK Medic ationGen ericName : [place] Not Available Not Available Not Available cefdinir [...] ICD10 Code Diagnosis IMO Codes Diagnosis Note [id number] SRIDEVI HERNANDEZ MD [facility] [address] [address] 03/29/2025 09:38:31 03/29/2025 10:34:04 Conductive hearing loss 23632114 H90.12 Disorder o f left Eustachian tube [id number] 694991 H69.92 Partial lo ss of ear ossicles 90807830 H74.321 H74.322 H74.323 Acute myri ngitis of left ear 4275649128 844642 H73.002 [id number] Health Concerns Section Related Observation LastModified by Organization Detai ls LastModified Time None Recorded Concern Status LastModified by Organization Details LastModified Time None Recorded Payers Encounter Date Sequence Insurance Name Policy Number Policy Grigsby Covered Member ID Grigsby Member ID Guarantor Name 03/29/2025 1 [employer] [id number] Eliana Akbar [id number] Eliana Akbar Notes Date Note Type Note Provider Name and Address Organization Details Recorded Time 03/29/2025 text/html Patient with long history of [...] blockage, pain, or discharge. SRIDEVI HERNANDEZ MD [address] [place] [address], [phone], [facility] - [facility] 03/29/2025 10:33:48 OBGyn Episode No OBEpisode recorded.
--- OUTSIDE RECORDS SUMMARY | 2025-06-21 12:11 | XMS_ITS ---
Author Name [facility] Organization Unknown Care Team Organization Name Specialty Phone Email Start Date End [facility] Termed, PROVIDER Primary Care 05/29/202202/19
== END 2025-06-21 10:02 | disposition home or self-care (01) ==
LOC: HO.MAMMO 10:01
PROVIDERS: PCP Pediatrics; Visit Provider Pediatrics
DX: Z12.31 Encounter for screening mammogram for malignant neoplasm of breast (principal)
CPT/HCPCS: 77063; 77067

== ENCOUNTER → 2025-06-21 10:15 | Outpatient (BNV) | payer OTHER, SELFPAY | PROVIDERS: PCP Pediatrics; Visit Provider Internal Medicine | DX: Z12.31 Encounter for screening mammogram for malignant neoplasm of breast (principal) | CPT/HCPCS: 77063; 77067 ==